=== PATIENT | female | born 1990 | race Hispanic/Latino ===

== ENCOUNTER 2021-03-02 16:17 | Emergency (ER) | payer OTHER, SELFPAY ==
[~2021-03-02] VITALS: Ht 157.5 cm; Wt 61.8 kg
[2021-03-02] MEDS ORDERED: SERT-141 PO (16:35)
[2021-03-02] MEDS ORDERED: MORPHINE 2 MG/ML 1ML VIAL (J2270) IV ONE (16:45)
--- NOTE | 2021-03-02 17:09 | REPVR ---
PROCEDURE INFORMATION: Exam: CT Head Without Contrast Exam date and time: 03/02/2021 4:58 PM Age: 30 years old Clinical indication: Injury or trauma; Fall; Blunt trauma (contusions or hematomas) and concussion/head injury TECHNIQUE: Imaging protocol: Computed tomography of the head without contrast. Radiation optimization: All CT scans at this facility use at least one of these dose optimization techniques: automated exposure control; mA and/or kV adjustment per patient size (includes targeted exams where dose is matched to clinical indication); or iterative reconstruction. COMPARISON: No relevant prior studies available. FINDINGS: Brain: Unremarkable. No hemorrhage. No significant white matter disease. No edema. Cerebral ventricles: No ventriculomegaly. Paranasal sinuses: Visualized sinuses are unremarkable. No fluid levels. Mastoid air cells: Visualized mastoid air cells are well aerated. Bones/joints: Unremarkable. No acute fracture. Soft tissues: Unremarkable. IMPRESSION: No acute abnormality. Electronically signed by: Ger Reyes On 03/02/2021 17:08:45 PM
--- NOTE | 2021-03-02 17:15 | REPVR ---
PROCEDURE INFORMATION: Exam: CT Cervical Spine Without Contrast Exam date and time: 03/02/2021 4:58 PM Age: 30 years old Clinical indication: Injury or trauma; Fall; Blunt trauma and concussion/head injury TECHNIQUE: Imaging protocol: Computed tomography images of the cervical spine without contrast. Radiation optimization: All CT scans at this facility use at least one of these dose optimization techniques: automated exposure control; mA and/or kV adjustment per patient size (includes targeted exams where dose is matched to clinical indication); or iterative reconstruction. COMPARISON: No relevant prior studies available. FINDINGS: Bones/joints: No acute fracture. Straightening of the cervical spine with loss of normal cervical lordosis, likely secondary to splinting and/or patient positioning. 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 The cervical disc space heights and vertebral body heights are well maintained. No harsh spinal stenosis. No severe bony neural foraminal narrowing. Lungs: Lung apices are clear. Soft tissues: Unremarkable. IMPRESSION: No acute findings. Electronically signed by: Ger Reyes On 03/02/2021 17:14:45 PM
[2021-03-02 17:23] LABS: BASO # 0.1 10^3/uL (0.0-0.2); BASO % 0.4 % (0.0-1.0); EOS # 0.2 10^3/uL (0.0-0.5); EOS % 1.4 % (0.0-3.0); HEMATOCRIT 38.6 % (36.0-47.0); HEMOGLOBIN 12.7 g/dl (12.0-15.5); MEAN CORPUSCULAR HGB CONC 32.9 g/dl (32.0-36.5); MEAN CORPUSCULAR VOLUME 82.1 fl (80.0-96.0); MONO # 0.7 10^3/uL (0.0-0.8); MONO % 6.3 % (2.0-8.0); NEUTROPHILS # 9.4 10^3/uL (1.5-8.5); NEUTROPHILS % 82.5 % (36.0-66.0); PLATELET COUNT, AUTOMATED 345 10^3/uL (150-450); WHITE BLOOD COUNT 11.5 10^3/uL (4.0-10.0)
--- NOTE | 2021-03-02 17:27 | REP ---
INDICATION: trauma. COMPARISON: None. TECHNIQUE: Single portable AP view of the chest was performed. FINDINGS: There is no acute infiltrate or pulmonary edema. Lungs are clear. The heart is not significantly enlarged. The mediastinal silhouette is unremarkable. The visualized osseous structures are intact. IMPRESSION: No acute pulmonary disease. <Electronically signed by Hugh Duff > 03/02/21 [id number]
[2021-03-02 17:48] LABS: ALBUMIN 3.6 GM/DL (3.2-5.2); ALT/SGPT 25 U/L (12-78); BILIRUBIN,TOTAL 0.3 MG/DL (0.2-1.0); BLOOD UREA NITROGEN 10 MG/DL (7-18); CALCIUM LEVEL 8.8 MG/DL (8.5-10.1); CARBON DIOXIDE LEVEL 25 MEQ/L (21-32); CHLORIDE LEVEL 105 MEQ/L (98-107); CREATININE FOR GFR 0.58 MG/DL (0.55-1.30); GLOMERULAR FILTRATION RATE > 60.0 (>60); GLUCOSE, FASTING 94 MG/DL (70-100); POTASSIUM SERUM 3.5 MEQ/L (3.5-5.1); SODIUM LEVEL 135 MEQ/L (136-145); TOTAL PROTEIN 7.3 GM/DL (6.4-8.2)
== END 2021-03-02 18:53 | disposition home or self-care (01) ==
LOC: M ED 16:17 → EDBD 16:17 → M ED 18:53
DX: S00.03XA Contusion of scalp, initial encounter (principal); S06.9X0A Unspecified intracranial injury without loss of consciousness, initial encounter; S80.212A Abrasion, left knee, initial encounter; V18.2XXA Unspecified pedal cyclist injured in noncollision transport accident in nontraffic accident, initial encounter; Y92.830 Public park as the place of occurrence of the external cause; F33.9 Major depressive disorder, recurrent, unspecified; Z79.899 Other long term (current) drug therapy
CPT/HCPCS: 70450; 71045; 72125; 80053; 85025; 96374; 99283; J2270

== ENCOUNTER → 2021-04-28 | Outpatient (CLI) | payer OTHER ==
[~2021-04-28] MED LIST: SERT-141 PO
--- NOTE | 2021-04-28 10:50 | REPVR ---
PROCEDURE INFORMATION: Exam: CT Head Without Contrast Exam date and time: 04/28/2021 9:41 AM Age: 31 years old Clinical indication: Visual disturbance; Additional info: Concusion w/ vison distrubance TECHNIQUE: Imaging protocol: Computed tomography of the head without contrast. Radiation optimization: All CT scans at this facility use at least one of these dose optimization techniques: automated exposure control; mA and/or kV adjustment per patient size (includes targeted exams where dose is matched to clinical indication); or iterative reconstruction. COMPARISON: CT Head without contrast 03/02/2021 4:47 PM FINDINGS: Brain: There is no acute intracranial hemorrhage. No extra-axial fluid collection. No evidence of acute infarct. Duff white differentiation is intact. There is no evidence of mass. There is no mass effect or midline shift. Cerebral ventricles: No ventriculomegaly. Paranasal sinuses: Visualized sinuses are unremarkable. No fluid levels. Mastoid air cells: No significant mastoid effusion. Bones/joints: No acute fracture. Soft tissues: There is a small amount of right forehead soft tissue swelling. IMPRESSION: No evidence of acute intracranial abnormality. No acute hemorrhage. No evidence of acute infarct or mass. Electronically signed by: Vinita Richmond On 04/28/2021 10:49:35 AM
== END ==
LOC: M RAD 09:25
DX: H53.9 Unspecified visual disturbance (principal)

== ENCOUNTER 2021-10-13 14:53 | Emergency (ER) | payer OTHER ==
[~2021-10-13] VITALS: Ht 157.5 cm; Wt 58.9 kg
[2021-10-13 14:58] VITALS: BP 107/68
[2021-10-13 15:45] LABS: BASO % 0.6 % (0.0-1.0); EOS # 0.1 10^3/uL (0.0-0.5); EOS % 1.1 % (0.0-3.0); HEMATOCRIT 37.6 % (36.0-47.0); HEMOGLOBIN 12.6 g/dl (12.0-15.5); LYMPH # 1.2 10^3/uL (1.5-5.0); LYMPH % 23.1 % (24.0-44.0); MEAN CORPUSCULAR HEMOGLOBIN 28.5 pg (27.0-33.0); MEAN CORPUSCULAR HGB CONC 33.5 g/dl (32.0-36.5); MEAN CORPUSCULAR VOLUME 85.1 fl (80.0-96.0); MONO # 0.4 10^3/uL (0.0-0.8); NEUTROPHILS # 3.5 10^3/uL (1.5-8.5); NEUTROPHILS % 66.8 % (36.0-66.0); PLATELET COUNT, AUTOMATED 332 10^3/uL (150-450); RED BLOOD COUNT 4.42 10^6/uL (4.00-5.40); WHITE BLOOD COUNT 5.2 10^3/uL (4.0-10.0)
[2021-10-13 16:11] LABS: BLOOD UREA NITROGEN 5 MG/DL (7-18); CALCIUM LEVEL 8.8 MG/DL (8.5-10.1); CARBON DIOXIDE LEVEL 27 MEQ/L (21-32); CHLORIDE LEVEL 107 MEQ/L (98-107); CREATININE FOR GFR 0.54 MG/DL (0.55-1.30); GLOMERULAR FILTRATION RATE > 60.0 (>60); GLUCOSE, FASTING 86 MG/DL (70-100); POTASSIUM SERUM 3.8 MEQ/L (3.5-5.1); SODIUM LEVEL 138 MEQ/L (136-145)
[2021-10-13 16:23] LABS: HCG, SERUM QUALITATIVE NEGATIVE (NEGATIVE)
[2021-10-13] MEDS ORDERED: PANTOPRAZOLE 40MG VIAL IV ONE (19:20)
[2021-10-13] MEDS ORDERED: SUCRALFATE 1 GM TAB PO ONE (19:20)
[2021-10-13] MEDS ORDERED: KETOROLAC 30 MG/ML 1ML VIAL IV ONE (19:20)
[2021-10-13] MEDS ORDERED: GI COCKTAIL 50ML BTL(HYOSCYAMINE/MAALOX/LIDOCAINE VISCOUS)(1:3:1) PO ONE (19:20)
[2021-10-13 21:00] LABS: D-DIMER QUANT 1332.92 ng/ml (<500)
[2021-10-13] MEDS ORDERED: NS 1,000 ML IV ONE (21:05)
[2021-10-13] MEDS ORDERED: ISOVUE-370 76% 100ML VIAL As Ordered ONE (21:07)
[2021-10-13 21:30] LABS: INR 1.04
[2021-10-13 21:38] LABS: ALBUMIN 3.6 GM/DL (3.2-5.2); ALT/SGPT 24 U/L (12-78); BILIRUBIN,DIRECT < 0.1 MG/DL (0.0-0.2); BILIRUBIN,TOTAL 0.4 MG/DL (0.2-1.0); LIPASE 71 U/L (73-393)
[2021-10-13 22:51] LABS: RSV AMPLIFICATION NEGATIVE (NEGATIVE)
[2021-10-13] MEDS ORDERED: SUCR1SS PO (23:01)
[2021-10-13] MEDS ORDERED: PROT1TAB2 PO (23:01)
== END 2021-10-13 23:53 | disposition home or self-care (01) ==
LOC: M ED 14:53
DX: K21.9 Gastro-esophageal reflux disease without esophagitis (principal); R79.1 Abnormal coagulation profile; J45.909 Unspecified asthma, uncomplicated
CPT/HCPCS: 71046; 71275; 80048; 80076; 82550; 83690; 84703; 85025; 85379; 85610; 85730; 87631; 93005; 96361; 96374; 96375; 99284; C9113; J1885; Q9967

== ENCOUNTER 2022-09-03 15:33 | Emergency (ER) | payer OTHER ==
[~2022-09-03] VITALS: Ht 177.8 cm; Wt 57.2 kg
[~2022-09-03 15:33] MED LIST changes: +PROT1TAB2 PO; +SUCR1SS PO
[2022-09-03 16:58] LABS: BASO % 0.5 % (0.0-1.0); EOS # 0.1 10^3/uL (0.0-0.5); EOS % 1.4 % (0.0-3.0); HEMATOCRIT 37.5 % (36.0-47.0); HEMOGLOBIN 12.4 g/dl (12.0-15.5); LYMPH # 1.2 10^3/uL (1.5-5.0); LYMPH % 16.7 % (24.0-44.0); MEAN CORPUSCULAR HGB CONC 33.1 g/dl (32.0-36.5); MEAN CORPUSCULAR VOLUME 84.7 fl (80.0-96.0); MONO # 0.7 10^3/uL (0.0-0.8); MONO % 9.8 % (2.0-8.0); NEUTROPHILS # 5.2 10^3/uL (1.5-8.5); NEUTROPHILS % 70.8 % (36.0-66.0); PLATELET COUNT, AUTOMATED 305 10^3/uL (150-450); RED BLOOD COUNT 4.43 10^6/uL (4.00-5.40); WHITE BLOOD COUNT 7.3 10^3/uL (4.0-10.0)
[2022-09-03 17:31] LABS: BLOOD UREA NITROGEN 5 MG/DL (9-23); CARBON DIOXIDE LEVEL 24 MMOL/L (20-31); CHLORIDE LEVEL 104 MMOL/L (98-107); CREATININE FOR GFR 0.48 MG/DL (0.55-1.30); GLOMERULAR FILTRATION RATE > 60.0 (>60); GLUCOSE, FASTING 90 MG/DL (60-100); POTASSIUM SERUM 3.9 MMOL/L (3.5-5.1); SODIUM LEVEL 135 MMOL/L (136-145)
[2022-09-03 18:04] LABS: HCG, SERUM QUANTITATIVE 116106.6 MIU/ML (<4.2)
[2022-09-03 20:36] VITALS: BP 109/64
== END 2022-09-03 20:38 | disposition home or self-care (01) ==
LOC: M ED 15:33
DX: O20.0 Threatened abortion (principal); O20.8 Other hemorrhage in early pregnancy; Z3A.01 Less than 8 weeks gestation of pregnancy; Z79.899 Other long term (current) drug therapy

== ENCOUNTER 2023-03-24 09:17 | Inpatient (IN) | payer OTHER ==
[2023-03-24] VITALS (11 sets, daily range): BP systolic 88–115; BP diastolic 53–73
[~2023-03-24] VITALS: Ht 157.5 cm; Wt 64.2 kg
[2023-03-24] MEDS ORDERED: LACTATED RINGER'S 1000 ML IV STA (09:33)
[2023-03-24] MEDS ORDERED: TRANEXAMIC ACID INJection 1,000 MG in NS 100 ML IV PRN (09:35)
[2023-03-24] MEDS ORDERED: LIDOCAINE 1% MDV 20ML VIAL INFIL PRN (09:35)
[2023-03-24] MEDS ORDERED: CARBOPROST TROMETHAMINE 250 MCG/ML AMP IM PRN (09:35)
[2023-03-24] MEDS ORDERED: OXYTOCIN INJ 10UNITS/ML 1ML VIAL IM PRN (09:35)
[2023-03-24] MEDS ORDERED: OXYTOCIN INJ 10UNITS/ML 1ML VIAL IV PRN (09:35)
[2023-03-24] MEDS ORDERED: METHYLERGONOVINE MALEATE 0.2MG/ML 1ML VIAL IM PRN (09:35)
[2023-03-24] MEDS ORDERED: OXYTOCIN DRIP 30 UNITS in IV 1 EA IV PRN ×6 (09:35)
[2023-03-24] MEDS ORDERED: PRENTAB9 PO (09:36)
[2023-03-24] MEDS ORDERED: URSO300C3 PO (09:37)
[2023-03-24] MEDS ORDERED: [UNRECOGNIZED DRUG - OTHER] PO (09:39)
[2023-03-24] MEDS ORDERED: [UNRECOGNIZED DRUG - OTHER] PO (09:41)
[2023-03-24] MEDS ORDERED: HOME MED LIST COMPLETE! XX SCH (09:55)
[2023-03-24] MEDS: miSOPROStol 50MCG 1/2 TABLET PO PRN ×4 (11:34→22:36)
[2023-03-24 11:49] LABS: BASO % 0.4 % (0.0-1.0); EOS # 0.1 10^3/uL (0.0-0.5); HEMATOCRIT 35.8 % (36.0-47.0); HEMOGLOBIN 12.2 g/dl (12.0-15.5); LYMPH # 1.3 10^3/uL (1.5-5.0); LYMPH % 14.1 % (24.0-44.0); MEAN CORPUSCULAR HEMOGLOBIN 29.9 pg (27.0-33.0); MEAN CORPUSCULAR HGB CONC 34.1 g/dl (32.0-36.5); MEAN CORPUSCULAR VOLUME 87.7 fl (80.0-96.0); MONO # 0.5 10^3/uL (0.0-0.8); MONO % 5.3 % (2.0-8.0); NEUTROPHILS # 7.3 10^3/uL (1.5-8.5); NEUTROPHILS % 77.8 % (36.0-66.0); PLATELET COUNT, AUTOMATED 323 10^3/uL (150-450); RED BLOOD COUNT 4.08 10^6/uL (4.00-5.40); WHITE BLOOD COUNT 9.4 10^3/uL (4.0-10.0)
[2023-03-24] MEDS: LR 1,000 ML IV SCH (11:55)
[2023-03-24 12:13] LABS: URIC ACID 5.2 MG/DL (3.1-7.8)
[2023-03-24 12:15] LABS: LDH LACTATE DEHYDROGENASE 199 U/L (120-246)
[2023-03-24 12:16] LABS: ALT/SGPT 94 U/L (7.0-40); AST/SGOT 44 U/L (<34); BILIRUBIN,TOTAL 0.4 MG/DL (0.3-1.2); CREATININE FOR GFR 0.38 MG/DL (0.55-1.30); GLOMERULAR FILTRATION RATE > 60.0 (>60)
[2023-03-24 12:19] LABS: TOTAL PROTEIN,RANDOM URINE < 6.0 MG/DL (0.0-14.0)
[2023-03-25] VITALS (35 sets, daily range): BP systolic 91–124; BP diastolic 51–81
[2023-03-25] MEDS: miSOPROStol 50MCG 1/2 TABLET PO PRN (03:04)
[2023-03-25] MEDS: OXYTOCIN DRIP 30 UNITS in IV 1 EA IV SCH (07:38)
[2023-03-25] MEDS: LR 1,000 ML IV SCH ×2 (09:56→17:47)
[2023-03-26] VITALS (34 sets, daily range): BP systolic 83–128; BP diastolic 42–73; O2SAT 97–100
[2023-03-26] MEDS: LR 1,000 ML IV SCH ×4 (01:30→21:17)
[2023-03-26] MEDS ORDERED: NALBUPHINE HCL (10 MG/ML) 100MG/10ML MDV IV PRN (08:30)
[2023-03-26] MEDS ORDERED: PROMETHAZINE 25MG/ML 1ML VIAL IV PRN (08:30)
[2023-03-26] MEDS: miSOPROStol 50MCG 1/2 TABLET PO PRN (14:54)
[2023-03-26] MEDS: OXYTOCIN DRIP 30 UNITS in IV 1 EA IV SCH (20:17)
[2023-03-27] VITALS (38 sets, daily range): BP systolic 88–144; BP diastolic 52–76; O2SAT 98–100
[2023-03-27] MEDS: LR 1,000 ML IV SCH ×5 (01:35→11:13)
[2023-03-27] MEDS ORDERED: diphenhydrAMINE 50MG/ML VIAL IV PRN (03:15)
[2023-03-27] MEDS ORDERED: LR 500 ML IV PRN (03:15)
[2023-03-27] MEDS ORDERED: ePHEDrine SULFATE 25 MG/5 ML(5MG/ML) SYRINGE IVP PRN (03:15)
[2023-03-27] MEDS ORDERED: ONDANSETRON 4MG 2ML VIAL IV PRN (03:15)
[2023-03-27] MEDS ORDERED: EPIDURAL/PCA KEYS XX PRN (03:15)
[2023-03-27] MEDS ORDERED: NALOXONE INJ 0.4MG/1ML VIAL IV PRN (03:15)
[2023-03-27] MEDS: FENTANYL/ROPIVACAINE/NACL BAG 100 ML EPIDURAL SCH ×2 (03:54→11:22)
[2023-03-27] MEDS: ALBUTEROL SULFATE 2.5MG/0.5ML INH NEB SOLN NEB SCH ×4 (04:09→20:53)
[2023-03-27 06:56] LABS: HEMATOCRIT 35.1 % (36.0-47.0); HEMOGLOBIN 11.6 g/dl (12.0-15.5); MEAN CORPUSCULAR HEMOGLOBIN 29.5 pg (27.0-33.0); MEAN CORPUSCULAR VOLUME 89.3 fl (80.0-96.0); PLATELET COUNT, AUTOMATED 261 10^3/uL (150-450); RED BLOOD COUNT 3.93 10^6/uL (4.00-5.40); WHITE BLOOD COUNT 14.2 10^3/uL (4.0-10.0)
[2023-03-27] MEDS ORDERED: ACETAMINOPHEN 500 MG TAB PO ONE (11:00)
[2023-03-27] MEDS ORDERED: METHYLERGONOVINE MALEATE 0.2 MG TAB PO PRN (12:55)
[2023-03-27] MEDS ORDERED: ACETAMINOPHEN TAB 650MG DOSE (2X325MG) PO PRN (12:55)
[2023-03-27] MEDS ORDERED: OXYTOCIN DRIP 30 UNITS in IV 1 EA IV SCH ×4 (12:55)
[2023-03-27] MEDS: IBUPROFEN 800 MG TAB PO PRN ×2 (13:57→21:12)
[2023-03-27] MEDS ORDERED: ONDANSETRON 4MG 2ML VIAL IV ONE (15:00)
[2023-03-27] MEDS: ACETAMINOPHEN 500 MG TAB PO PRN ×2 (17:31→23:03)
[2023-03-27] MEDS: DOCUSATE SODIUM 100MG CAPSULE PO SCH (19:57)
[2023-03-28] MEDS: IBUPROFEN 800 MG TAB PO PRN ×3 (05:04→21:11)
[2023-03-28 06:00] VITALS: BP 98/58; O2SAT 99
[2023-03-28 06:51] LABS: HEMATOCRIT 26.5 % (36.0-47.0); MEAN CORPUSCULAR HEMOGLOBIN 29.6 pg (27.0-33.0); MEAN CORPUSCULAR HGB CONC 32.5 g/dl (32.0-36.5); MEAN CORPUSCULAR VOLUME 91.1 fl (80.0-96.0); PLATELET COUNT, AUTOMATED 193 10^3/uL (150-450); RED BLOOD COUNT 2.91 10^6/uL (4.00-5.40); WHITE BLOOD COUNT 10.3 10^3/uL (4.0-10.0)
[2023-03-28 06:55] LABS: HEMOGLOBIN 8.6 g/dl (12.0-15.5)
[2023-03-28] MEDS: DIBUCAINE 1% OINTMENT 30GM TOP PRN (08:41)
[2023-03-28] MEDS: PRENATAL VITAMINS CHEWABLE TABLET PO SCH (08:41)
[2023-03-28] MEDS: ACETAMINOPHEN 500 MG TAB PO PRN ×2 (08:42→15:53)
[2023-03-28] MEDS: DOCUSATE SODIUM 100MG CAPSULE PO SCH ×2 (08:43→21:11)
[2023-03-28 18:00] VITALS: BP 101/64; O2SAT 100
[2023-03-28] MEDS: ALBUTEROL SULFATE 2.5MG/0.5ML INH NEB SOLN NEB SCH (20:05)
[2023-03-28 22:00] VITALS: BP 121/63; O2SAT 100
[2023-03-28] MEDS ORDERED: oxyCODONE 5MG TAB PO ONE (22:00)
[2023-03-29 06:00] VITALS: BP 104/60; O2SAT 99
[2023-03-29] MEDS: PRENATAL VITAMINS CHEWABLE TABLET PO SCH (08:10)
[2023-03-29] MEDS: DOCUSATE SODIUM 100MG CAPSULE PO SCH ×2 (08:10→20:37)
[2023-03-29] MEDS: IBUPROFEN 600MG TAB PO PRN ×2 (08:15→15:29)
[2023-03-29] MEDS ORDERED: LEVALBUTEROL 1.25MG 0.5ML CONCENTRATE NEB INH PRN (09:00)
[2023-03-29] MEDS: DIBUCAINE 1% OINTMENT 30GM TOP PRN (10:24)
[2023-03-29] MEDS: ACETAMINOPHEN 500 MG TAB PO PRN (13:11)
[2023-03-29 18:00] VITALS: BP 108/61
[2023-03-30 06:10] VITALS: BP 109/67; O2SAT 100
[2023-03-30] MEDS: PRENATAL VITAMINS CHEWABLE TABLET PO SCH (09:10)
[2023-03-30] MEDS: DOCUSATE SODIUM 100MG CAPSULE PO SCH (09:11)
[2023-03-30] MEDS: IBUPROFEN 600MG TAB PO PRN (09:11)
[2023-03-30] MEDS ORDERED: ACET1TAB55 PO (09:35)
[2023-03-30] MEDS ORDERED: COLA100C5 PO (09:35)
[2023-03-30] MEDS ORDERED: IBUP-1022 PO (09:35)
== END 2023-03-30 12:00 | disposition home or self-care (01) | DRG 807 ==
LOC: M LDI 09:17 → M OBS 03-27 16:55
PROVIDERS: ADMIT Obstetrics & Gynecology; ATTEND Advanced Practice Midwife
PROC: 3E033VJ Introduction of Other Hormone into Peripheral Vein, Percutaneous Approach (ICD-10-PCS; 2023-03-24)
PROC: 10E0XZZ Delivery of Products of Conception, External Approach (ICD-10-PCS; principal; 2023-03-27)
PROC: 10907ZC Drainage of Amniotic Fluid, Therapeutic from Products of Conception, Via Natural or Artificial Opening (ICD-10-PCS; 2023-03-27)
PROC: 0HQ9XZZ Repair Perineum Skin, External Approach (ICD-10-PCS; 2023-03-27)
DX: O26.62 Liver and biliary tract disorders in childbirth (principal); Z37.0 Single live birth; Z3A.36 36 weeks gestation of pregnancy; O70.0 First degree perineal laceration during delivery

== ENCOUNTER 2023-08-21 17:38 | Emergency (ER) | payer OTHER ==
[~2023-08-21] VITALS: Ht 157.5 cm; Wt 57.0 kg
[~2023-08-21 17:38] MED LIST changes: +ACET1TAB55 PO; +COLA100C5 PO; +IBUP-1022 PO; +PRENTAB9 PO; +URSO300C3 PO; +[UNRECOGNIZED DRUG - OTHER] PO; +[UNRECOGNIZED DRUG - OTHER] PO
[2023-08-21] MEDS ORDERED: FLUO20CA22 PO (17:48)
[2023-08-21 23:00] VITALS: BP 114/77; TEMP 97.7; O2SAT 100
[2023-08-21] MEDS: ACETAMINOPHEN 500 MG TAB PO ONE (23:15)
[2023-08-22] MEDS ORDERED: METH-1164 PO (00:03)
[2023-08-22] MEDS ORDERED: IBUP-1022 PO (00:03)
== END 2023-08-22 00:21 | disposition home or self-care (01) ==
LOC: M ED 17:38
DX: S06.0X0A Concussion without loss of consciousness, initial encounter (principal); S13.4XXA Sprain of ligaments of cervical spine, initial encounter; W00.0XXA Fall on same level due to ice and snow, initial encounter; Y92.330 Ice skating rink (indoor) (outdoor) as the place of occurrence of the external cause; Y93.21 Activity, ice skating; Y99.9 Unspecified external cause status; J45.909 Unspecified asthma, uncomplicated